=== PATIENT | male | born 1985 | race Caucasian/White ===

== ENCOUNTER 2018-10-08 19:54 | Emergency (ER) | payer OTHER ==
[~2018-10-08] VITALS: Ht 182.9 cm; Wt 243.6 kg
[2018-10-08 20:16] VITALS: Ht 182.9 cm; Wt 243.6 kg
[2018-10-08 21:25] VITALS: BP 179/97
== END 2018-10-08 21:25 | disposition home or self-care (01) ==
LOC: ED 19:54
DX: H66.91 Otitis media, unspecified, right ear (principal); J06.9 Acute upper respiratory infection, unspecified; I10 Essential (primary) hypertension; Z90.89 Acquired absence of other organs